=== PATIENT | female | born 1960 | race Caucasian/White ===

== ENCOUNTER 2016-06-08 05:38 | Outpatient (CLI) | payer BC ==
[~2016-06-08] VITALS: Ht 152.4 cm; Wt 59.9 kg
[~2016-06-08 05:38] MED LIST: DCS100C PO; IBP800T PO; OXYC1TAB12 PO; [UNRECOGNIZED DRUG - OTHER] PO; estradiol IM
[2016-06-08] MEDS ORDERED: ESTR1TAB24 PO (14:17)
[2016-06-08] MEDS ORDERED: PANT40TA2 PO (14:17)
[2016-06-08] MEDS ORDERED: PRAM0.5T2 PO (14:17)
[2016-06-08] MEDS ORDERED: ALPR1TAB7 PO (14:17)
== END 2016-06-08 15:09 ==
LOC: PREOP 05:38
PROVIDERS: ATTEND Surgery Pediatric Surgery
DX: Z01.818 Encounter for other preprocedural examination (principal); Z12.11 Encounter for screening for malignant neoplasm of colon; Z80.0 Family history of malignant neoplasm of digestive organs; K21.9 Gastro-esophageal reflux disease without esophagitis

== ENCOUNTER 2016-06-10 09:23 | Day surgery (SDC) | payer BC ==
[~2016-06-10] VITALS: Ht 152.4 cm; Wt 59.9 kg
[~2016-06-10 09:23] MED LIST changes: +ALPR1TAB7 PO; +ESTR1TAB24 PO; +PANT40TA2 PO; +PRAM0.5T2 PO
[2016-06-10 09:40] VITALS: BP 125/80
[2016-06-10] MEDS ORDERED: HURRICAINE EXT TUBE (BENZOCAINE) XX PRN (09:45)
[2016-06-10] MEDS ORDERED: LIDOCAINE JELLY 2% (XYLOCAINE) 5 ML TUBE MM PRN (09:45)
[2016-06-10] MEDS ORDERED: FLUMAZENIL (ROMAZICON) 0.1 MG/ML 5 ML VIAL INJ PRN (09:45)
[2016-06-10] MEDS ORDERED: NALOXONE 0.4 MG/ML 1 ML (NARCAN) VIAL IVP PRN (09:45)
[2016-06-10] MEDS ORDERED: NS IV 500 ML 500 ML IV PRN (09:45)
[2016-06-10] MEDS ORDERED: MIDAZOLAM 2 MG/2 ML (VERSED) VIAL ONE (09:52)
[2016-06-10] MEDS ORDERED: fentaNYL INJECTION 100 MCG/2 ML AMP ONE ×2 (09:52)
[2016-06-10] MEDS ORDERED: HURRICAINE EXT TUBE (BENZOCAINE) ONE (09:53)
[2016-06-10] MEDS ORDERED: LIDOCAINE JELLY 2% (XYLOCAINE) 5 ML TUBE ONE (09:53)
--- NOTE | 2016-06-10 10:33 | Conscious Sedation/ASA ---
Conscious Sedation Pre-Proced Time Reviewed: 10:30 ASA Class: 2 Airway Mallampati Classification: ([place] appropriate class) I. II. III, IV Lungs Heart ASA score ASA 1: a normal healthy patient ASA 2: a patient with a mild systemic disease (mid diabetes, controlled hypertension, obesity ASA 3: a patient with a severe systemic disease that limits activity (angina , COPD, prior Myocardial infarction) ASA 4: a patient with an incapacitating disease that is a constant threat to life (CHF, renal failure) ASA 5: a moribund patient not expected to survive 24 hrs. (ruptured aneurysm) ASA 6: a declared brain patient whose organs are being harvested. For emergent operations, add the letter E after the classification Grade 2 Sedation Plan: Analgesia, Amnesia, Plan communicated to team members, Discussed options with patient/fam, Discussed risks with patient/fam Note The patient is an appropriate candidate to undergo the planned procedure, sedation, and anesthesia. The patient immediately re-assessed prior to indication. ADEN FRYE MD Jun 10, 2016 10:33 am
--- NOTE | 2016-06-10 10:37 | Progress Note-Pre Operative ---
Pre-Operative Progress Note H&P Reviewed The H&P was reviewed, patient examined and no changes noted. Date H&P Reviewed: Jun 10, 2016 Time H&P Reviewed: 10:30 Pre-Operative Diagnosis: screening, family hx colon ca, GERD ADEN FRYE MD Jun 10, 2016 10:37 am
[2016-06-10] MEDS ORDERED: ONDANSETRON 4 MG/2 ML (SDV) Z0FRAN ONE (11:02)
[2016-06-10] MEDS: fentaNYL INJECTION 100 MCG/2 ML AMP IVP PRN ×4 (11:10→11:45)
[2016-06-10] MEDS: MIDAZOLAM 2 MG/2 ML (VERSED) VIAL IVP PRN ×4 (11:11→11:40)
--- NOTE | 2016-06-10 12:09 | Progress Note-Post Operative ---
Post-Operative Progess Note Pre-Operative Diagnosis screening, family hx colon ca, GERD Post-Operative Diagnosis reflux esophagitis(class B), small HH(<1cm), moderate gastritis. chronic stage 2 ext and int hemorrhoids, moderate sigmoid diverticulosis. Post-Op Procedure Note Date of Procedure: Jun 10, 2016 Name of Procedure: EGD wtih bx. Colonoscopy. Anesthesia Type CS Estimated blood loss (mL): minimal Specimen(s) collected GE jxn, antrum ADEN FRYE MD Jun 10, 2016 12:09 pm
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
[2016-06-10 12:20] VITALS: BP 111/71
--- NOTE | 2016-06-10 12:53 | PROCEDURE REPORT ---
PROCEDURE PHYSICIAN: ADEN MA DATE OF PROCEDURE: 06/10/2016 ATTENDING PRIMARY CARE PHYSICIAN: Dr. Contreras in [place], [place] PREOPERATIVE DIAGNOSIS: 1. Screening colonoscopy with family history of colon cancer. 2. Rectal bleeding. 3. Gastroesophageal reflux disease. POSTOPERATIVE DIAGNOSES: 1. Reflux esophagitis, class B. 2. Small hiatal hernia less than 1 cm in size. 3. Moderate severity gastritis. COLONOSCOPY: 1. Chronic, stage II external and internal hemorrhoids. 2. Moderate sigmoid diverticulosis. 3. No polyps identified. PROCEDURE: 1. EGD with biopsy. 2. Colonoscopy. SURGEON: Dr. Ma. ANESTHESIA: Conscious sedation. ESTIMATED BLOOD LOSS: Minimal. FINDINGS: EGD: 1. Reflux esophagitis, class B. 2. Small hiatal hernia less than 1 cm in size. 3. Moderate severity gastritis. 4. The pylorus and duodenum appeared normal. COLONOSCOPY: 1. Chronic, stage II external and internal hemorrhoids, not actively edematous or inflamed and no bleeding. 2. There was a moderate sigmoid diverticulosis with no mucosal inflammatory changes to indicate any active diverticulitis. 3. The remainder of the colon was normal. There were no polyps or any neoplasms identified. DISPOSITION: The patient tolerated procedure well. BRIEF HISTORY: Ms. Angelina Lloyd is a 55-year-old female who was referred over to us for a follow-up screening colonoscopy as well as for gastroesophageal reflux disease. She did have a colonoscopy approximately 5 years ago and diverticulosis was identified. She does have a family history of colon cancer including a first degree relative with her sister being diagnosed at around 51 years of age. She also does report history of constipation, as well as rectal bleeding. She also reports that she has had issues with gastroesophageal reflux disease, which has worsened as well. She thinks that this might be due to stress, as well as diet. She was recently started Protonix and states that her symptoms have improved. A CT scan was perform October 2015 where an indeterminate 1.1 centimeter lesion was identified in the distal descending colon. This was not identified on follow-up CT scan. PROCEDURE: The patient was brought to the endoscopy suite, laid in the left lateral decubitus position. After adequate IV pain and sedative medications and conscious sedation anesthesia, the mouthpiece was applied. The endoscope was placed in the mouth, visualizing the pharynx and hypopharyngeal region. Vocal cords, epiglottis and vallecula identified and appeared to be normal. The endoscope was then gently intubated into the esophageal opening and the esophagus insufflated. The endoscope was then advanced through the first, second, and 3rd portions esophagus. At the level of the GE junction, a reflux esophagitis, class B identified. There were no ulcers or strictures identified in this region. A biopsy was taken with forceps with visualization of good hemostasis. The endoscope was then easily advanced into stomach and endoscope retroflexed visualizing a small hiatal hernia less than 1 cm in size. There was a moderate severity gastritis. There were no ulcers, polyps or any neoplasms identified. A biopsy was taken of the stomach antrum, with forceps position with visualization of good hemostasis. The endoscope was then advanced through the pylorus and into the first and second portions of duodenum which appeared normal. The endoscope was then slowly withdrawn while taking a second look and suctioning of residual air with no additional findings. The patient tolerated this portion the procedure well. For her gastritis, reflux esophagitis and small hiatal hernia we will recommend continued medical management with the necessary lifestyle and diet accommodation including small, more frequent meals, avoidance of eating at night, as well as head elevation while lying supine. She also needs to avoid caffeinated beverages, spicy, greasy and acidic foods. We will also recommend continuation of her Protonix 40 mg daily. COLONOSCOPY: Under the same conscious sedation anesthesia, we then proceeded with the colonoscopy portion the procedure. A digital rectal examination was performed revealing chronic, stage II external and internal hemorrhoids, not actively edematous or inflamed and no bleeding. Normal sphincter tone was felt and there were no palpable masses. The endoscope was then intubated into the anus and the rectum gently insufflated. The endoscope was then advanced through the valves of Brothers the rectum with no polyps or neoplasms identified. We then proceeded through the sigmoid colon where a moderate sigmoid diverticulosis identified. There were no mucosal inflammatory changes to indicate any active diverticulitis. The endoscope was then advanced through the remainder of the descending, transverse, and ascending colon of the cecum. These segments were normal. There were no polyps or any neoplasms identified throughout the colon or rectum. The endoscope was then slowly withdrawn while taking a second look and suctioning residual air with no additional findings. The patient tolerated procedure well. We will have her continue with medical management with a high fiber diet with at least 25 to 30 grams of fiber per day, as well as at least 64 fluid ounces of water daily to promote soft stools on a daily basis. We will recommend a follow-up colonoscopy in 5 years. Job ID: [id number] Dictated Date: 06/10/2016 12:05:20 Shactor Helper Date: 06/10/2016 12:42:10 / pop
[2016-06-10 12:55] VITALS: BP 118/73
[2016-06-10 13:13] VITALS: BP 118/73
--- OUTSIDE RECORDS SUMMARY | 2016-06-12 12:12 | XMS REPORT | CCD ---
Author Author CHRIS AUSTIN Organization Unknown Address [address] [place] [address] Care Team Providers Care Mortgage Loan Computation Clerk Name Role Phone LUIS ANTONIO HERNÁNDEZ MD Attphys Allergies Allergy Code Allergy Type Reaction Status MORPHINE 7052 Drug allergy ITCHING Active Active Medications No Active Medications Problems Unknown or Not Available. Procedures Procedure Code Procedure Type Date Laparoscopy, surgical; cholecystectomy with cholangiography 14053 CPT 11/20/2015 OPERATIVE CHOLANGIOGRAM 44119730 SNOMED CT 11/20/2015 PATHOLOGY ORDER [id number] SNOMED CT 11/20/2015 Results Unknown or Not Available. Function Status Unknown or Not Available. History of Immunizations Immunization Code Date Td (adult), adsorbed 09 05/16/2002 influenza, split (incl. purified surface antigen) 15 03/07/2003 Hep B, adult 43 05/16/2002 Hep B, adult 43 07/11/2002 Plan of Treatment Unknown or Not Available. Social History Smoking Status Code Start Date End Date Current every day smoker 585115120 Vital Signs Vital Sign Value Unit Date/Time Recent/Initial? Weight Measured 130 [lb_av] 11/20/2015 09:40 Initial VS Height 60 [in_i] 11/20/2015 09:40 Initial VS BMI (Body Mass Index) 25.39 kg/m2 11/20/2015 09:40 Initial VS BSA (Body Surface Area) 1.58 m2 11/20/2015 09:40 Initial VS BP Systolic 125 mm[Hg] 11/20/2015 15:16 Initial VS BP Diastolic 63 mm[Hg] 11/20/2015 15:16 Initial VS Respiratory Rate 16 /min 11/20/2015 15:16 Initial VS Heart Rate 115 /min 11/20/2015 15:16 Initial VS O2 % BldC Oximetry 94 % 11/20/2015 15:16 Initial VS BP Systolic 123 mm[Hg] 11/20/2015 15:45 Most Recent VS BP Diastolic 70 mm[Hg] 11/20/2015 15:45 Most Recent VS Respiratory Rate 15 /min 11/20/2015 15:45 Most Recent VS Heart Rate 81 /min 11/20/2015 15:45 Most Recent VS O2 % BldC Oximetry 99 % 11/20/2015 15:45 Most Recent VS Function Status Unknown or Not Available. Goals Unknown or Not Available. ASSESSMENTS Unknown or Not Available. Health Concerns Section Unknown or Not Available.
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
--- OUTSIDE RECORDS SUMMARY | 2016-06-12 12:13 | XMS REPORT ---
Author Author Nicholas Contreras [facility] Address [address] [place], [place] [address] Care Team Providers Care Coordinator Skill Training Program Name Role Phone Nicholas Contreras PCP Unavailable Nicholas Contreras PreferredProvider Unavailable Allergies and Adverse Reactions Name Reaction Notes Morphine Sulfate severe irritation Plan of Treatment Planned Activity Comments Planned Date Planned Time Plan/Goal CBC with Diff, automated 11/19/2015 12:00 AM CBC With Auto Differential 02/18/2016 12:00 AM CMP 02/18/2016 12:00 AM Thyroid stimulating hormone (TSH) 02/18/2016 12:00 AM Vitamin B12 02/18/2016 12:00 AM Rheumatoid Factor, Qualitative 02/18/2016 12:00 AM INOCENCIO W/TITER 02/18/2016 12:[address] ABD AND PELVIS W/CONTRAST 02/18/2016 12:00 AM Medications Active Name Start Date [...] by oral route 3 times per day [place] 5-325 mg oral tablet 10/26/2015 take 1 tablet by oral route every 6 hours as needed for pain Zofran ODT 4 mg oral tablet,disintegrating 11/11/2015 [...] break, chew and/or open. for 4 days pantoprazole 40 mg oral tablet,delayed release (DR/EC) 11/04/2015 02/02/2016 take 1 tablet (40 mg) by oral route once daily for 30 days Discontinued Name Start Date Discontinued Date [...] take 1 tablet by oral route daily Vivlodex 10 mg oral capsule 02/18/2016 take 1 capsule (10 mg) by oral route once daily Zofran ODT 4 mg oral tablet,disintegrating 01/25/2016 02/18/2016 dissolve 1 tablet by oral route every 4 to 6 hours as needed Problem List Description Status Onset Restless Legs Active Palpitation Active Vital Signs Date Time BP-Sys(mm[Hg] BP-Inocencia(mm[Hg]) HR(bpm) RR(rpm) Temp WT HT HC BMI BSA BMI Percentile O2 Sat(%) 02/18/2016 10:48:00 AM 120 mmHg 76 mmHg 66 bpm 16 rpm 97.7 F 130 lbs 60 in 25.39 kg/m2 1.58 m2 98 % 11/30/2015 11:14:00 AM 138 mmHg 90 mmHg [...] RADEX SPINE CERVICAL 4 OR 5 VIEWS Reviewed 03/10/2015 12:00 AM RADEX SPINE THORACIC 2 VIEWS Reviewed 03/10/2015 12:00 AM CHEST X-RAY 2VW FRONTAL&LATL Reviewed 03/11/2015 12:00 AM Toradol 60 Mg [facility]#9301-8950-23 Reviewed 07/15/2015 12:00 AM MRI NECK SPINE [...] 09/24/2012 12:00 AM Decadron, Per 1 Mg [facility]# [address]-45 Reviewed 09/24/2012 12:00 AM Depo-Medrol, Per 80 Mg [facility]#1807-9419-58 Reviewed 10/25/2012 12:00 AM CHEST X-RAY 2VW FRONTAL&LATL Reviewed Results Summary Data and Description Results 11/04/2015 4:25 PM WBC 7.6 RBC 4.61 HGB 14.0 g/dLHCT 41.60 %MCV 90.0 fLMCH 30.40 pgMCHC 33.70 g/dLRDW SD 40 RDW CV 12.20 %MPV 10.10 fLPLT 218 NRBC# 0.00 NRBC% 0.0 %NEUT 67.10 %%LYMP 24.80 %%MONO 6.20 %%EOS 0.80 %%BASO 0.80 %#NEUT 5.11 #LYMP 1.89 #MONO 0.47 #EOS 0.06 #BASO 0.06 MANUAL DIFF NOT IND GLUCOSE 106.0 mg/dLSODIUM 143.0 mmol/LPOTASSIUM 3.70 mmol/LCHLORIDE 107.0 mmol/LCO2 27.0 mmol/LBUN 14.0 mg/dLCREATININE 0.80 mg/dLSGOT/AST 20.0 IU/LSGPT/ALT 21.0 IU /LALK PHOS 64.0 IU/LTOTAL PROTEIN 6.90 g/dLALBUMIN 4.60 g/dLTOTAL BILI 0.20 mg/ dLCALCIUM 9.50 mg/dLAGE 55 GFR NonAA 74 GFR AA 90 eGFR >60 mL/min/1.73meGFR AA * >60 AMYLASE 46 IU/LLIPASE 23.0 U/L History Of Immunizations [...] Postoperative Follow-up: Cholecystectomy Nov 30 2015 11:14AM Myalgia Feb 18 2016 10:55AM Arthralgia, unspecified joint Feb 18 2016 10:55AM Bitten or stung by nonvenomous insect and other nonvenomous arthropods, initial encounter Feb 18 2016 10:55AM Nodule of colon Feb 18 2016 10:55AM Fatigue Feb 18 2016 10:55AM Abnormal abdominal CT scan Feb 18 2016 11:32AM Payers Insurance Name Company Name Plan Name Plan Number Policy Number Policy Group Number Start Date [facility] [id number] Tuesday, 2009 Czech Family Czech Family [id number] Wednesday, 2014 History of Encounters Visit Date Visit Type Provider 02/18/2016 Office visit Nicholas Contreras MD 11/30/2015 Office visit Soto Veronica MD 11/20/2015 [facility] Soto Veronica MD 11/11/2015 Office visit Soto Veronica MD 11/04/2015 Office visit 11/04/2015 Office visit Soto Veronica MD 10/20/2015 Office visit Nicholas Contreras MD 07/15/2015 Office visit Nicholas Contreras MD 03/11/2015 Office visit Nancy Cruz TIRE AND LUBE TECHNICIAN 03/10/2015 Office visit Margarita Cannon TIRE AND LUBE TECHNICIAN 01/31/2013 Office visit Nicholas Contreras MD 10/25/2012 Office visit Nicholas Contreras MD 09/24/2012 Office visit Margarita Cannon TIRE AND LUBE TECHNICIAN 07/20/2009 Office visit Nicholas Contreras MD
--- OUTSIDE RECORDS SUMMARY | 2016-06-12 12:13 | XMS REPORT | Continuity of Care Document ---
Author Author [facility] Organization [facility] Address Unknown Phone Unavailable Allergies Active Description Code Type Severity Reaction Onset Reported/Identified Relationship to Patient Clinical Status Yes morphine [id number] Drug Allergy Unknown ITCHING 03/19/2014 Medications Problems Date Dx Coded Attending Type Code Diagnosis Diagnosed By 03/26/2014 AGUSTIN ALATORRE, DOMINICK Saeed Ot 568.0 03/26/2014 AGUSTIN ALATORRE, DOMINICK Saeed Ot 617.9 03/26/2014 AGUSTIN ALATORRE, DOMINICK Saeed Ot 625.6 03/26/2014 AGUSTIN ALATORRE, DOMINICK Saeed Ot 614.6 03/26/2014 AGUSTIN ALATORRE, DOMINICK Saeed Ot 616.0 03/26/2014 AGUSTIN ALATORRE, DOMINICK Saeed Ot 620.2 03/26/2014 AGUSTIN ALATORRE, DOMINICK Saeed Ot 620.8 03/26/2014 AGUSTIN ALATORRE, DOMINICK Saeed Ot 625.6 03/26/2014 AGUSTIN ALATORRE, DOMINICK Saeed Ot 625.6 03/26/2014 AGUSTIN ALATORRE, DOMINICK Saeed Ot V72.63 03/26/2014 AGUSTIN ALATORRE, DOMINICK Saeed Ot V74.8 03/26/2014 AGUSTIN ALATORRE, DOMINICK Saeed Ot 625.6 03/26/2014 AGUSTIN ALATORRE, DOMINICK Saeed Ot V72.63 03/26/2014 AGUSTIN ALATORRE, DOMINICK Saeed Ot V74.8 04/14/2014 AGUSTIN ALATORRE, DOMINICK Saeed Ot 625.6 04/14/2014 AGUSTIN ALATORRE, DOMINICK Saeed Ot V72.63 04/14/2014 AGUSTIN ALATORRE, DOMINICK Saeed Ot V74.8 Procedures Results Encounters ACCT No. Visit Date/Time Discharge Status Pt. Type Provider Facility Loc./Unit Complaint [id number] 03/24/2014 06:58:00 2014 08:45:00 DIS Outpatient DOMINICK VELEZ MD [facility] [id number] 03/19/2014 11:47:00 2013 23:59:59 CLS Outpatient DOMINICK VELEZ MD [facility] PREOP [id number] 06/10/2016 10:38:00 Document Registration [id number] 06/08/2016 05:38:00 ACT Outpatient ADEN FRYE MD [facility] PREOP SCREENING, FAMILY HISTORY COLON CA, REFLUX
--- OUTSIDE RECORDS SUMMARY | 2016-06-12 12:14 | XMS REPORT ---
Author Author Nancy Cruz [facility] Address [address] [place], [place] [address] Care Team Providers Care Mr Teacher Name Role Phone aNncy Cruz PCP Unavailable Allergies and Adverse Reactions Name Reaction Notes Morphine Sulfate severe irritation Plan of Treatment Not available. Medications Active Name Start Date Estimated Completion Date SIG Comments Nucynta 50 mg oral tablet 01/31/2013 take 1 tablet (50 mg) by oral route every 6 hours as needed Tessalon Perles 100 mg oral capsule 09/24/2012 take 1 capsule by oral route 3 times a day as needed levofloxacin 500 mg oral tablet 07/09/2013 TAKE ONE TABLET BY MOUTH EVERY DAY FOR 7 DAYS Vitamin D3 5,000 unit oral tablet take 1 tablet by oral route daily Medrol (Franki) 4 mg oral tablets,dose pack 03/10/2015 take as directed ibuprofen 800 mg oral tablet 03/10/2015 take 1 tablet (800 mg) by oral route 3 times per day with food as needed for pain cyclobenzaprine 10 mg oral tablet 03/10/2015 take 1 tablet (10 mg) by oral route 2 times per day as needed for muscle tension/spasm Name Start Date Expiration Date SIG Comments Zithromax Z-Franki 250 mg oral tablet 07/20/2009 07/30/2009 take 2 tablets (500 mg ) by oral route once daily for 1 day then 1 tablet (250 mg) by oral route once daily for 4 days Diflucan 150 mg oral tablet 07/20/2009 07/22/2009 take 1 tablet (150 mg) by oral route once Mirapex 0.25 mg oral tablet 07/20/2009 07/24/2009 take 1 tablet (0.25 mg) by oral route 2-3 hours before bedtime Levaquin 500 mg oral tablet 10/25/2012 11/08/2012 take 1 tablet (500 mg) by oral route once daily for 7 days Lortab 5-500 mg oral tablet 10/25/2012 take 1 tablet by oral route every 6 hours for pain/cough Problem List Description Status Onset Restless Legs Active Palpitation Active Vital Signs Date Time BP-Sys(mm[Hg] BP-Inocencia(mm[Hg]) HR(bpm) RR(rpm) Temp WT HT HC BMI BSA BMI Percentile O2 Sat(%) 03/11/2015 9:32:00 AM 124 mmHg 62 mmHg [...] 12:00 AM CHEST X-RAY 2VW FRONTAL&LATL Returned 09/24/2012 12:00 AM THER/PROPH/DIAG INJ SC/IM Reviewed 09/24/2012 12:00 AM Decadron, Per 1 Mg [facility]# [address]-77 Reviewed 09/24/2012 12:00 AM Depo-Medrol, Per 80 Mg [facility]#2408-6838-99 Reviewed 10/25/2012 12:00 AM CHEST X-RAY 2VW FRONTAL&LATL Reviewed Results Summary Not available. History Of Immunizations Not available. History of [...] 1:47PM Rib pain Mar 10 2015 1:47PM Payers Insurance Name Company Name Plan Name Plan Number Policy Number Policy Group Number Start Date Uzbek Family Uzbek Family [id number] Wednesday, 2014 Bcbs B[facility] [id number] Tuesday, 2009 History of Encounters Visit Date Visit Type Provider 03/11/2015 Office visit Nancy Cruz GANG MOWER OPERATOR 03/10/2015 Office visit Margarita Cannon GANG MOWER OPERATOR 01/31/2013 Office visit Nicholas Contreras MD 10/25/2012 Office visit Nicholas Contreras MD 09/24/2012 Office visit Margarita Cannon GANG MOWER OPERATOR 07/20/2009 Office visit Nicholas Contreras MD
--- OUTSIDE RECORDS SUMMARY | 2016-06-12 12:14 | XMS REPORT ---
Author Soto Zarate [facility] Address [address] [place], [place] [address] Care Team Providers Care Shellfish Farming Supervisor Name Role Phone Soto Veronica PCP Unavailable [...] by oral route 3 times per day [place] 5-325 mg oral tablet 10/26/2015 take 1 [...] Returned 03/11/2015 12:00 AM Toradol 60 Mg [facility]#3733-2352-89 Reviewed 07/15/2015 12:00 AM MRI NECK SPINE [...] 09/24/2012 12:00 AM Decadron, Per 1 Mg [facility]# [address]-19 Reviewed 09/24/2012 12:00 AM Depo-Medrol, Per 80 Mg [facility]#5231-9480-35 Reviewed 10/25/2012 12:00 AM CHEST X-RAY 2VW [...] 3:46PM Biliary Dyskinesia Nov 11 2015 3:46PM Payers Insurance Name Company Name Plan Name Plan Number Policy Number Policy Group Number Start Date [facility] [id number] Tuesday, 2009 Puerto Rican Family Puerto Rican Family [id number] Wednesday, 2014 History of Encounters Visit Date Visit Type Provider 11/11/2015 Office visit Soto Veronica MD 11/04/2015 Office visit Soto Veronica MD 10/20/2015 Office visit Nicholas Contreras MD 07/15/2015 Office visit Nicholas Contreras MD 03/11/2015 Office visit Nancy Cruz ENVIRONMENTAL QUALITY ANALYST 03/10/2015 Office visit Margarita Cannon ENVIRONMENTAL QUALITY ANALYST 01/31/2013 Office visit Nicholas Contreras MD 10/25/2012 Office visit Nicholas Contreras MD 09/24/2012 Office visit Margarita Cannon ENVIRONMENTAL QUALITY ANALYST 07/20/2009 Office visit Nicholas Contreras MD
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
--- OUTSIDE RECORDS SUMMARY | 2016-06-12 12:15 | XMS REPORT ---
Author Author Nicholas Contreras [facility] Address [address] [place], [place] [address] Care Team Providers Care Coronary Clinical Specialist Name Role Phone Nicholas Contreras PCP Unavailable Allergies and Adverse Reactions Name Reaction Notes Morphine Sulfate severe irritation Plan of Treatment Planned Activity Comments Planned Date Planned Time Plan/Goal MRI NECK SPINE W/DYE 07/15/2015 12:00 AM Medications Active Name Start Date Estimated Completion Date SIG Comments Vitamin D3 5,000 unit oral tablet take 1 tablet by oral route daily ibuprofen 800 mg oral tablet 03/10/2015 take 1 tablet (800 mg) by oral route 3 times per day with food as needed for pain cyclobenzaprine 10 mg oral tablet 03/10/2015 take 1 tablet (10 mg) by oral route 2 times per day as needed for muscle tension/spasm propranolol 20 mg oral tablet take 1/2 tablet daily omeprazole 40 mg oral capsule,delayed release(DR/EC) take 1 capsule (40 mg) by oral route once daily before a meal melatonin 1 mg oral tablet take 1 tablet by oral route daily estradiol oral Mirapex 0.5 mg oral tablet 07/15/2015 07/09/2016 take 1 tablet (0.5 mg) by oral route 2-3 hours before bedtime for 90 days Xanax 1 mg oral tablet 07/15/2015 take 1 tablet (1 mg) by oral route 3 times per day Name Start Date Expiration Date SIG Comments [...] oral route every 6 hours for pain/cough Discontinued Name Start Date Discontinued Date SIG [...] tablets,dose pack 03/10/2015 07/15/2015 take as directed Problem List Description Status Onset Restless Legs Active Palpitation Active Vital Signs Date Time BP-Sys(mm[Hg] BP-Inocencia(mm[Hg]) HR(bpm) RR(rpm) Temp WT HT HC BMI BSA BMI Percentile O2 Sat(%) 07/15/2015 9:23:00 AM 122 mmHg 88 mmHg [...] Returned 03/11/2015 12:00 AM Toradol 60 Mg [facility]#9086-5587-00 Reviewed 09/24/2012 12:00 AM THER/PROPH/DIAG INJ SC/IM Reviewed 09/24/2012 12:00 AM Decadron, Per 1 Mg [facility]# [address]-88 Reviewed 09/24/2012 12:00 AM Depo-Medrol, Per 80 Mg [facility]#4520-6780-52 Reviewed 10/25/2012 12:00 AM CHEST X-RAY 2VW [...] 9:29AM Grief reaction Jul 15 2015 9:29AM Payers Insurance Name Company Name Plan Name Plan Number Policy Number Policy Group Number Start Date [facility] [id number] Tuesday, 2009 Ugandan Family Ugandan Family [id number] Wednesday, 2014 History of Encounters Visit Date Visit Type Provider 07/15/2015 Office visit Nicholas Contreras MD 03/11/2015 Office visit Nancy Cruz DEODORIZER OPERATOR 03/10/2015 Office visit Margarita Cannon DEODORIZER OPERATOR 01/31/2013 Office visit Nicholas Contreras MD 10/25/2012 Office visit Nicholas Cnotreras MD 09/24/2012 Office visit Margarita Cannon DEODORIZER OPERATOR 07/20/2009 Office visit Nicholas Contreras MD
--- OUTSIDE RECORDS SUMMARY | 2016-06-12 12:15 | XMS REPORT ---
Author Author Nicholas Contreras [facility] Address [address] [facility] [address] [place], [place] [address] Care Team Providers Care Engineering Systems Analyst Name Role Phone Nicholas Contreras PCP Unavailable [...] Returned 03/11/2015 12:00 AM Toradol 60 Mg [facility]#7541-2648-27 Reviewed 07/15/2015 12:00 AM MRI NECK SPINE W/DYE Returned 09/24/2012 12:00 AM THER/PROPH/DIAG INJ SC/IM Reviewed 09/24/2012 12:00 AM Decadron, Per 1 Mg [facility]# [address]-26 Reviewed 09/24/2012 12:00 AM Depo-Medrol, Per 80 Mg [facility]#7830-6799-71 Reviewed 10/25/2012 12:00 AM CHEST X-RAY 2VW [...] Policy Number Policy Group Number Start Date [facility] [id number] Tuesday, 2009 Irish Family Irish Family [id number] Wednesday, 2014 History of Encounters Visit Date Visit Type Provider 07/15/2015 Office visit Nicholas Contreras MD 03/11/2015 Office visit Nancy Cruz 2ND PRESSMAN 03/10/2015 Office visit Margarita Cannon 2ND PRESSMAN 01/31/2013 Office visit Nicholas Contreras MD 10/25/2012 Office visit Nicholas Contreras MD 09/24/2012 Office visit Margarita Cannon 2ND PRESSMAN 07/20/2009 Office visit Nicholas Contreras MD
--- OUTSIDE RECORDS SUMMARY | 2016-06-12 12:15 | XMS REPORT ---
Author Author Nicholas Contreras [facility] Address [address] [place], [place] [address] Care Team Providers Care Sap Gatherer Name Role Phone Nicholas Contreras PCP Unavailable [...] 12:00 AM INOCENCIO W/TITER 02/18/2016 12:00 AM Medications Active Name Start [...] by oral route 3 times per day [place] 5-325 mg oral tablet 10/26/2015 take 1 [...] Reviewed 03/11/2015 12:00 AM Toradol 60 Mg [facility]#0047-2200-20 Reviewed 07/15/2015 12:00 AM MRI NECK SPINE [...] 09/24/2012 12:00 AM Decadron, Per 1 Mg [facility]# [address]-82 Reviewed 09/24/2012 12:00 AM Depo-Medrol, Per 80 Mg [facility]#7869-6062-06 Reviewed 10/25/2012 12:00 AM CHEST X-RAY 2VW [...] 2016 10:55AM Fatigue Feb 18 2016 10:55AM Payers Insurance Name Company Name Plan Name Plan Number Policy Number Policy Group Number Start Date BCBS [facility] [id number] Tuesday, 2009 German Family German Family [id number] Wednesday, 2014 History of Encounters Visit Date Visit Type Provider 02/18/2016 Office visit Nicholas Contreras MD 11/30/2015 Office visit Soot Veronica MD 11/20/2015 [facility] Soto Veronica MD 11/11/2015 Office visit Soto Veronica MD 11/04/2015 Office visit 11/04/2015 Office visit Soto Veronica MD 10/20/2015 Office visit Nicholas Contreras MD 07/15/2015 Office visit Nicholas Contreras MD 03/11/2015 Office visit Nancy Cruz MATLAB DEVELOPER 03/10/2015 Office visit Margarita Cannon MATLAB DEVELOPER 01/31/2013 Office visit Nicholas Contreras MD 10/25/2012 Office visit Nicholas Contreras MD 09/24/2012 Office visit Margarita Cannon MATLAB DEVELOPER 07/20/2009 Office visit Nicholas Contreras MD
--- OUTSIDE RECORDS SUMMARY | 2016-06-12 12:16 | XMS REPORT ---
Author Author Nancy Cruz [facility] Address [address] [place], [place] [address] Care Team Providers Care Proc Tech Name Role Phone Nancy Cruz PCP Unavailable Nicholas Contreras PreferredProvider Unavailable Allergies and Adverse Reactions Name Reaction Notes Morphine Sulfate severe irritation Plan of Treatment Planned Activity Comments Planned Date Planned Time Plan/Goal CBC with Diff, automated 11/19/2015 12:00 AM Thyroid stimulating hormone (TSH) 02/18/2016 12:00 AM Medications Active Name Start Date Estimated Completion Date SIG Comments Vitamin D3 5,000 unit oral tablet take 1 tablet by oral route daily estradiol oral Mirapex 0.5 mg oral tablet 07/15/2015 07/09/2016 take 1 tablet (0.5 mg) by oral route 2-3 hours before bedtime for 90 days [place] 5-325 mg oral tablet 10/26/2015 take 1 tablet by oral route every 6 hours as needed for pain Zofran ODT 4 mg oral tablet,disintegrating 11/11/2015 dissolve 1 tablet by oral route every 4 to 6 hours as needed prednisone 20 mg oral tablet 03/25/2016 take 2 tablets daily x2 days, then 1 tablet daily x4 days cyclobenzaprine 10 mg oral tablet 03/25/2016 take 1 tablet by oral route once a day (at bedtime) Xanax 1 mg oral tablet 03/25/2016 take 1 tablet (1 mg) by oral [...] oral route once daily for 30 days doxycycline hyclate 100 mg oral tablet 03/09/2016 03/16/2016 take 1 tablet ( 100 mg) by oral route 2 times per day for 7 days Discontinued Name Start Date Discontinued Date [...] HC BMI BSA BMI Percentile O2 Sat(%) 03/25/2016 11:05:00 AM 134 mmHg 94 mmHg 88 bpm 18 rpm 97.1 F 134.6 lbs 60 in 26.29 kg/m2 1.61 m2 97 % 02/18/2016 10:48:00 AM 120 mmHg 76 mmHg 66 bpm 16 rpm 97.7 F 130 lbs 60 in 25.3886 kg/m 1.58 m 98 % 11/30/2015 11:14:00 AM 138 mmHg [...] Reviewed 03/11/2015 12:00 AM Toradol 60 Mg [facility]#8613-9087-08 Reviewed 07/15/2015 12:00 AM MRI NECK SPINE W/DYE Returned 10/23/2015 12:00 AM US EXAM ABDOM COMPLETE Returned 11/04/2015 12:[address] ABD & PELV W/CONTRAST Returned 11/04/2015 12:00 AM HEPATOBILIARY SYSTEM IMAGING Returned 11/04/2015 12:00 AM COMPLETE CBC W/AUTO DIFF WBC Returned 11/04/2015 12:00 AM COMPREHEN METABOLIC PANEL Returned 11/04/2015 12:00 AM ASSAY OF AMYLASE Returned 11/04/2015 12:00 AM ASSAY OF LIPASE Returned 02/18/2016 12:00 AM COMPLETE CBC W/AUTO DIFF WBC Returned 02/18/2016 12:00 AM COMPREHEN METABOLIC PANEL Returned 02/18/2016 12:00 AM VITAMIN B-12 Returned 02/18/2016 12:00 AM Tick Panel Returned 02/18/2016 12:00 AM RHEUMATOID FACTOR QUANT Returned 02/18/2016 12:00 AM ANTINUCLEAR ANTIBODIES Returned 02/18/2016 12:[address] ABD & PELV W/CONTRAST Returned 09/24/2012 12:00 AM THER/PROPH/DIAG INJ SC/IM Reviewed 09/24/2012 12:00 AM Decadron, Per 1 Mg [facility]# [address]-76 Reviewed 09/24/2012 12:00 AM Depo-Medrol, Per 80 Mg [facility]#1080[address]11[address]-32 Reviewed 10/25/2012 12:00 AM CHEST X-RAY 2VW [...] * >60 AMYLASE 46 IU/LLIPASE 23.0 U/L 02/18/2016 11:32 AM WBC 6.1 RBC 4.80 HGB 14.40 g/dLHCT 44.20 %MCV 92.0 fLMCH 30.0 pgMCHC 32.60 g/dLRDW SD 42 RDW CV 12.30 %MPV 10.10 fLPLT 216 NRBC# 0.00 NRBC% 0.0 %NEUT 59.80 %%LYMP 32.50 %%MONO 5.50 %%EOS 1.30 %%BASO 0.70 %#NEUT 3.67 #LYMP 1.99 #MONO 0.34 #EOS 0.08 #BASO 0.04 MANUAL DIFF NOT IND VITAMIN B12 493.0 pg/mLGLUCOSE 108.0 mg/dLSODIUM 140.0 mmol/LPOTASSIUM 4.0 mmol/LCHLORIDE 104.0 mmol/LCO2 29.0 mmol/LBUN 15.0 mg/dLCREATININE 0.80 mg/dLSGOT/AST 24.0 IU/ LSGPT/ALT 24.0 IU/LALK PHOS 88.0 IU/LTOTAL PROTEIN 7.40 g/dLALBUMIN 4.50 g/ dLTOTAL BILI 0.30 mg/dLCALCIUM 9.80 mg/dLAGE 55 GFR NonAA 74 GFR AA 90 eGFR >60 mL/min/1.73meGFR AA* >60 RA Factor <15.0 IU/mLAntinuclear Antibodies,IFA Negative Lyme IgG/IgM Ab <0.91 Lyme Disease Ab, Quant,IgM <0.80 RMSF, IgG, EIA Positive Daniel Ksn Spotted Fever,IgM 0.30 E. chaffeensis (HME) IgGTiter Negative titerE. chaffeensis (HME) IgMTiter Negative RMSF, IgG, IFA 1:64 History Of Immunizations Not available. History of [...] abdominal CT scan Feb 18 2016 11:32AM Neck pain Mar 25 2016 11:11AM Acute non intractable tension-type headache Mar 25 2016 11:11AM Anxiety Mar 25 2016 11:11AM Payers Insurance Name Company Name Plan Name Plan Number Policy Number Policy Group Number [id number], 2009 [place] [id number] Wednesday, 2014 History of Encounters Visit Date Visit Type Provider 03/25/2016 Office visit Nancy Cruz APRN 02/18/2016 Office visit Nicholas Contreras MD 11/30/2015 Office visit Soto Veronica MD 11/20/2015 [facility] Soto Veronica MD 11/11/2015 Office visit Soto Veronica MD 11/04/2015 Office visit 11/04/2015 Office visit Soto Veronica MD 10/20/2015 Office visit Nicholas Contreras MD 07/15/2015 Office visit Nicholas Contreras MD 03/11/2015 Office visit Nancy Cruz APRN 03/10/2015 Office visit Margarita Cannon APRN 01/31/2013 Office visit Nicholas Contreras MD 10/25/2012 Office visit Nicholas Contreras MD 09/24/2012 Office visit Margarita Cannon APRN 07/20/2009 Office visit Nicholas Contreras MD
== END 2016-06-10 13:05 | disposition home or self-care (01) ==
LOC: DELPENDDIS → ENDO 09:23 → DELPENDDIS 13:00 → ENDO 13:05
PROVIDERS: ATTEND Surgery Pediatric Surgery
DX: Z12.11 Encounter for screening for malignant neoplasm of colon (principal); Z80.0 Family history of malignant neoplasm of digestive organs; K64.1 Second degree hemorrhoids; K57.30 Diverticulosis of large intestine without perforation or abscess without bleeding; K21.0 Gastro-esophageal reflux disease with esophagitis; K44.9 Diaphragmatic hernia without obstruction or gangrene; K29.70 Gastritis, unspecified, without bleeding
CPT/HCPCS: 88305